=== PATIENT | female | born 1985 | race Caucasian/White ===

== ENCOUNTER 2020-07-06 19:02 | Emergency (ER) | payer OTHER, BC, SELFPAY ==
[~2020-07-06] VITALS: Ht 172.7 cm; Wt 127.0 kg
[2020-07-06 19:02] VITALS: BP_SYST 146
--- NOTE | 2020-07-06 19:05 | NUR ---
Patient triaged and placed in ER tent. VSS and patient appears in no acute distress at this time. Awaiting available bed, and MD notified of need for MSE.
--- NOTE | 2020-07-06 19:56 | NUR ---
ER IN TENT examining patient.
--- NOTE | 2020-07-06 20:02 | NUR ---
PATIENT BROUGHT IN COMPLAINING OF HISTOY OF ASTHMA, PRESENTING WITH CHEST TIGHTNESS, FEVERS, CHILLS, WHEEZING TODAY. dENIES SCOTTY SOB, ABDOMINAL PAIN, NAUSEA, VOMITING OR DIARRHEA. NO OTHER COMPLAINTS/INJURIES PER PATIENT OR NOTED. WILL CONTINUE TO MONITOR.
[2020-07-06 20:35] VITALS: BP_SYST 132
--- NOTE | 2020-07-06 20:35 | NUR ---
Patient given written and verbal discharge instructions and verbalizes understanding. ER MD discussed with patient the results and treatment provided. Patient in stable condition. ID arm band removed. Rx of ALBUTEROL given. Patient educated on pain management and to follow up with PMD. Pain Scale 0/10 Opportunity for questions provided and answered. Medication side effect fact sheet provided.
== END 2020-07-06 20:35 | disposition home or self-care (01) ==
LOC: SED 19:02
DX: J98.01 Acute bronchospasm (principal); Z90.49 Acquired absence of other specified parts of digestive tract; Z88.8 Allergy status to other drugs, medicaments and biological substances; Z20.828 Contact with and (suspected) exposure to other viral communicable diseases
CPT/HCPCS: 36415; 71045; 99284

== ENCOUNTER 2022-07-01 09:54 | Emergency (ER) | payer BC, OTHER ==
[~2022-07-01] VITALS: Ht 172.7 cm; Wt 108.9 kg
[2022-07-01 10:02] VITALS: BP_SYST 152
--- NOTE | 2022-07-01 10:27 | NUR ---
HCG NEGATIVE, URINE SENT TO LAB
--- NOTE | 2022-07-01 11:00 | NUR ---
MD WALDRON AT BEDSIDE
[2022-07-01 11:22] LABS: BASOPHILS # (AUTO) 0.1 K/uL (0.0-0.2); BASOPHILS % (AUTO) 0.6 % (0.0-2.0); EOSINOPHILS # (AUTO) 0.3 K/uL (0.0-0.4); EOSINOPHILS % (AUTO) 2.4 % (0.0-4.0); HEMATOCRIT 42.7 % (36-48); HEMOGLOBIN 14.6 g/dL (12.0-16.0); LYMPHOCYTES # (AUTO) 1.2 K/uL (1.0-5.5); LYMPHOCYTES % (AUTO) 11.1 % (20.5-51.5); MEAN CORPUSCULAR HEMOGLOBIN 28 pg (27-31); MEAN CORPUSCULAR HGB CONC 34 % (32-36); MEAN CORPUSCULAR VOLUME 83 fL (79.0-98.0); MONOCYTES # (AUTO) 0.4 K/uL (0.0-1.0); MONOCYTES % (AUTO) 3.5 % (1.7-9.3); NEUTROPHILS # (AUTO) 9.1 K/uL (1.8-7.7); NEUTROPHILS % (AUTO) 82.4 % (40.0-70.0); PLATELET COUNT (AUTO) 243 K/uL (130-430); RED BLOOD CELL COUNT(AUTO) 5.12 MIL/uL (4.2-6.2); RED CELL DISTRIBUTION WIDTH 14.5 % (9.0-15.0)
[2022-07-01 11:27] LABS: CALCIUM 9.3 mg/dL (8.4-11.0); CREATININE 0.8 mg/dL (0.55-1.30)
--- NOTE | 2022-07-01 11:32 | NUR ---
Patient to ER bed 04 to gown for evaluation. Side rails up.
[2022-07-01 11:40] LABS: ALBUMIN 3.9 g/dL (3.4-4.8); TOTAL BILIRUBIN 0.8 mg/dL (0.0-1.0)
--- NOTE | 2022-07-01 11:55 | NUR ---
PATIENT AMBULATORY PLACE IN ROOM 4, C/O NAUSEA/VOMITING TOOK ZOFRAN AT HOME BUT NOT FEELING BETTER. AWAITING FOR EDP FOR INITIAL ASSESSMENT.
[2022-07-01] MEDS ORDERED: NACL 0.9% 1,000 ML IV ONE (12:30)
[2022-07-01] MEDS ORDERED: ONDANSETRON HCL 4 MG/2 ML VIAL IVP ONE (12:30)
[2022-07-01] MEDS ORDERED: METOCLOPRAMIDE HCL 10 MG/2 ML VIAL IVP ONE (12:30)
--- NOTE | 2022-07-01 12:55 | NUR ---
PATIENT MEDICATED WILL CONTINUE TO MONITOR.
[2022-07-01] MEDS ORDERED: ONDA-8 TL (13:42)
[2022-07-01] MEDS ORDERED: PROC10TA13 PO (13:42)
[2022-07-01] MEDS ORDERED: METO-290 PO (13:42)
--- NOTE | 2022-07-01 13:45 | NUR ---
WATER CHALLENGE IN PROGRESS.
--- NOTE | 2022-07-01 13:52 | NUR ---
PATIENT TOLERATED WELL, H/L D/C SKIN INTACT.
--- NOTE | 2022-07-01 13:59 | NUR ---
ALL RESULT BACK EDP REASSESS PATIENT AND D/C HOME WITH INSTRUCTION, H/L REMOVED SKIN INTACT.
[2022-07-01 14:01] VITALS: BP_SYST 128
--- NOTE | 2022-07-01 14:02 | NUR ---
Patient given written and verbal discharge instructions and verbalizes understanding. ER MD discussed with patient the results and treatment provided. Patient in stable condition. ID arm band removed. IV catheter removed intact and dressing applied, no active bleeding. Rx of ZOFRAN/REGLAN/COMPAZINE given. Patient educated on pain management and to follow up with PMD. Pain Scale 0. Opportunity for questions provided and answered. Medication side effect fact sheet provided.
== END 2022-07-01 14:02 | disposition home or self-care (01) ==
LOC: SED 09:54
DX: R11.2 Nausea with vomiting, unspecified (principal); J45.909 Unspecified asthma, uncomplicated; Z88.8 Allergy status to other drugs, medicaments and biological substances
CPT/HCPCS: 99284; 96374; 96361; 96375; 80053; 83690; 85025; 36415; 81025; J2765; J2405; J7030

== ENCOUNTER 2022-09-30 06:26 | Emergency (ER) | payer BC ==
[~2022-09-30] VITALS: Ht 172.7 cm; Wt 106.1 kg
[~2022-09-30 06:26] MED LIST: METO-290 PO; ONDA-8 TL; PROC10TA13 PO
[2022-09-30 06:53] VITALS: BP_SYST 141
[2022-09-30] MEDS ORDERED: BUPR-120 PO (06:58)
[2022-09-30] MEDS ORDERED: VENL150C4 PO (06:59)
--- NOTE | 2022-09-30 07:00 | NUR ---
Patient triaged and placed in waiting room. VS checked and patient appears in no acute distress at this time. Accompanied by self, awaiting available bed, and MD notified of need for MSE.
--- NOTE | 2022-09-30 07:07 | NUR ---
ER at bedside examining patient.
--- NOTE | 2022-09-30 07:38 | NUR ---
RECEIVED PT FROM DEVYN ESCUDERO, ASSUMED CARE.
--- NOTE | 2022-09-30 07:57 | NUR ---
PT BIB SELF FROM HOME, AMBULTED TO BED 5. PT A&Ox4, ABLE TO MAKE NEEDS KNOWN. PT C/O OF FEVER SINCE Monday09/28/22 AND CHEST CONGESTION SINCE YESTERDAY. PT C/O SHARP CHEST PAIN DUE TO COUGHING RATING 5/10. PT STATES HAS COUGHED UP YELLOW COLORED SPUTUM. PT DENIES V/N/D. PT STATES SHE HAS A HISTORY OF PNEUMONIA. PT STATES SHE TOOK TYLENOL AND NYQUIL LAST NIGHT AT 2230.
[2022-09-30] MEDS ORDERED: D-ME118S48 PO (08:24)
[2022-09-30 08:43] VITALS: BP_SYST 123
--- NOTE | 2022-09-30 08:48 | NUR ---
Patient given written and verbal discharge instructions and verbalizes understanding. DR TOURE discussed with patient the results and treatment provided. Patient in stable condition. ID arm band removed. Rx of BROMFED DM COUGH SYRUP given. Patient educated on pain management and to follow up with PMD. Pain Scale 0/10. Opportunity for questions provided and answered. Medication side effect fact sheet provided.
--- NOTE | 2022-09-30 09:12 | NUR ---
COVID(+) RESULTS GIVEN TO . PT INFORMED BY .
== END 2022-09-30 08:43 | disposition home or self-care (01) ==
LOC: SED 06:26
DX: U07.1 COVID-19 (principal); R05.9 Cough, unspecified; R09.81 Nasal congestion; R50.9 Fever, unspecified; Z91.041 Radiographic dye allergy status; J45.909 Unspecified asthma, uncomplicated; Z79.899 Other long term (current) drug therapy
CPT/HCPCS: 36415; 71045; 99284